=== PATIENT | female | born 1985 | race Hispanic/Latino ===

== ENCOUNTER 2019-04-02 06:49 | Observation (INO) | payer BC ==
[2019-04-01 15:14] LABS: BASOPHILS % (AUTO) 0.3 % (0.0-5.0); EOSINOPHILS % (AUTO) 0.9 % (0.0-8.0); HEMATOCRIT 36.1 % (36-48); LYMPHOCYTES % (AUTO) 29.6 % (21.0-51.0); MEAN CORPUSCULAR HEMOGLOBIN 28.7 pg (27.0-33.0); MEAN CORPUSCULAR HGB CONC 33.9 g/dL (32.0-36.0); MEAN CORPUSCULAR VOLUME 84.8 fL (79-99); MONOCYTES % (AUTO) 6.1 % (3.0-13.0); NEUTROPHILS % (AUTO) 63.1 % (40.0-77.0); PLATELET COUNT (AUTO) 281 K/uL (130-400); RED BLOOD CELL COUNT(AUTO) 4.25 MIL/uL (4.00-5.50); RED CELL DISTRIBUTION WIDTH 14.4 % (11.0-15.5); WHITE BLOOD COUNT (AUTO) 6.9 K/uL (4.8-10.8)
[2019-04-01 15:27] VITALS: BP 118/60
--- NOTE | 2019-04-01 16:10 | NUR ---
Called Doctor [facility] office spoke to Estela and advised her that Physician orders does not indicate DOS and no h & P in chart, pending call back or fax sheet with info.
[~2019-04-02] VITALS: Ht 172.7 cm; Wt 110.7 kg
[2019-04-02] VITALS (21 sets, daily range): BP systolic 90–136; BP diastolic 50–91
[~2019-04-02 06:49] MED LIST: PREN-196 PO; PROGESTERONE VG; ampicillin PO
[2019-04-02] MEDS ORDERED: LACTATED RINGERS 1000ML 1,000 ML IV ONE (07:28)
[2019-04-02] MEDS: CEFAZOLIN SODIUM 1 GM VIAL ONE ×2 (07:40→08:00)
[2019-04-02] MEDS ORDERED: MIDAZOLAM HCL 1 MG/ML 2ML VIAL ONE ×2 (07:50→07:53)
[2019-04-02] MEDS ORDERED: PROPOFOL 10 MG/ML 20ML VIAL IV ONE (07:53)
[2019-04-02] MEDS ORDERED: DEXAMETHASONE SOD PHOSPHATE 10MG/ML 1ML VIAL ONE (07:53)
[2019-04-02] MEDS ORDERED: ONDANSETRON HCL 4 MG/2 ML VIAL ONE (07:53)
[2019-04-02] MEDS ORDERED: LIDOCAINE PF 2% 5ML ABBOJECT ONE (07:53)
[2019-04-02] MEDS ORDERED: FENTANYL CITRATE PF 50 MCG/1 ML 2ML VIAL ONE (07:53)
[2019-04-02] MEDS ORDERED: ROCURONIUM 10MG/1ML SYR 10 MG/ML ML ONE (07:54)
[2019-04-02] MEDS ORDERED: CEFAZOLIN 3GM /D5W 100ML 100 ML IV PRN (08:00)
[2019-04-02] MEDS ORDERED: ACETAMINOPHEN-CODEINE 300/30MG TAB PO PRN (09:00)
[2019-04-02] MEDS ORDERED: SIMETHICONE 80 MG TAB.CHEW PO PRN (09:00)
[2019-04-02] MEDS ORDERED: DOCUSATE SODIUM 100 MG CAP PO PRN (09:00)
[2019-04-02] MEDS ORDERED: PROMETHAZINE HCL 25 MG/ML 1ML AMPULE IM PRN ×2 (09:00)
[2019-04-02] MEDS ORDERED: BISACODYL 10 MG SUPP.RECT RC PRN (09:00)
[2019-04-02] MEDS ORDERED: MEPERIDINE-PF 75 MG/ML SYG IM PRN (09:00)
[2019-04-02] MEDS ORDERED: MEPERIDINE-PF 25 MG/ML SYG ONE ×2 (09:28→10:25)
[2019-04-02] MEDS ORDERED: KETOROLAC TROMETHAMINE 30MG/ML ONE (09:48)
[2019-04-02] MEDS ORDERED: MEPERIDINE-PF 50 MG/ML SYG ONE (10:25)
[2019-04-02] MEDS: DEXTROSE 5 %-0.45 % NACL 1,000 ML IV PRN ×2 (10:39→18:31)
--- NOTE | 2019-04-02 11:47 | NUR ---
NC NC REMOVED PER PT REQUEST, PT O2 SAT 99-100% ON ROOM AIR, NC LEFT IN ROOM
--- NOTE | 2019-04-02 20:45 | NUR ---
pt is ambulating in the hallway, accompanied by spouse, pt is in stable condition Addendum: 04/02/19 at 2150 by TRANG FORTE RN Amended: Links added.
[2019-04-03] MEDS: DEXTROSE 5 %-0.45 % NACL 1,000 ML IV PRN (03:13)
[2019-04-03 03:29] VITALS: BP 97/57
--- NOTE | 2019-04-03 05:15 | NUR ---
guerra catheter removed, tip intact. incisional dressing removed, incision is dry and intact, applied telfa pad. applied abdominal binder. pt tolerated well. informed to call for assistance to the bathroom, pt voiced understanding Addendum: 04/03/19 at 0542 by TRANG FORTE RN Amended: Links added.
[2019-04-03 07:07] LABS: HEMATOCRIT 32.8 % (36-48); MEAN CORPUSCULAR HEMOGLOBIN 28.5 pg (27.0-33.0); MEAN CORPUSCULAR HGB CONC 33.2 g/dL (32.0-36.0); MEAN CORPUSCULAR VOLUME 85.8 fL (79-99); PLATELET COUNT (AUTO) 244 K/uL (130-400); RED BLOOD CELL COUNT(AUTO) 3.83 MIL/uL (4.00-5.50); RED CELL DISTRIBUTION WIDTH 14.9 % (11.0-15.5); WHITE BLOOD COUNT (AUTO) 6.1 K/uL (4.8-10.8)
--- NOTE | 2019-04-03 07:55 | NUR ---
ACTIVITY PT AMBULATING HALLWAY, STEADY GAIT, TOLERATING WELL, NO C/O PAIN, ACCOMPANIED BY SPOUSE
[2019-04-03 08:04] VITALS: BP 122/64
[2019-04-03] MEDS ORDERED: IBUPROFEN 800 MG TAB PO SCH (09:00)
--- NOTE | 2019-04-03 09:39 | NUR ---
ACTIVITY PT AMBULATING HALLWAY, ACCOMPANIED BY SPOUSE, TOLERATING WELL
--- NOTE | 2019-04-03 10:55 | NUR ---
DISCHARGE PT STABLE, NO PAIN, NO COMPLAINTS; PT LEFT UNIT, VIA WHEELCHAIR, STILL , ACCOMPANIED BY CHERY OLIVAS AND SPOUSE CARRYING ALL PERSONAL BELONGINGS, INSTRUCTIONS, AND PRESCRIPTION; PT LEFT FACILITY IN PERSONAL VEHICLE
== END 2019-04-03 10:55 | disposition home or self-care (01) ==
LOC: DAH 06:49 → EDSTATUS 08:00 → DAHIP 09:20 → DAH 09:20 → WSH 10:10
PROVIDERS: ADMIT Specialist; ATTEND Specialist
DX: N83.209 Unspecified ovarian cyst, unspecified side (principal); Z53.31 Laparoscopic surgical procedure converted to open procedure; N83.8 Other noninflammatory disorders of ovary, fallopian tube and broad ligament
CPT/HCPCS: 36415 ×2; 49203; 85025; 85027; 86850; 86900; 86901; 88305; 96372; A4215; A4218; A4344; C1769 ×2; G0378 ×25; J0690; J1100; J1885; J2001; J2175 ×3; J2250 ×2; J2405; J2550; J2704; J3010; J7030; J7120

== ENCOUNTER 2019-04-23 21:08 | Observation (INO) | payer BC ==
[~2019-04-23] VITALS: Ht 172.7 cm; Wt 110.7 kg
[~2019-04-23 21:08] MED LIST changes: -ampicillin PO
[2019-04-23] MEDS ORDERED: SODIUM CHLORIDE 0.9% 1000ML 1,000 ML IV ONE (21:31)
[2019-04-23 22:01] LABS: BASOPHILS % (AUTO) 0.6 % (0.0-5.0); LYMPHOCYTES % (AUTO) 28.8 % (21.0-51.0); MEAN CORPUSCULAR HEMOGLOBIN 27.7 pg (27.0-33.0); NEUTROPHILS % (AUTO) 63.6 % (40.0-77.0); PLATELET COUNT (AUTO) 308 K/uL (130-400); RED BLOOD CELL COUNT(AUTO) 3.81 MIL/uL (4.00-5.50); RED CELL DISTRIBUTION WIDTH 14.3 % (11.0-15.5); WHITE BLOOD COUNT (AUTO) 8.4 K/uL (4.8-10.8)
[2019-04-23 22:08] LABS: CREATININE 1.4 mg/dL (0.5-1.5); POTASSIUM 4.1 mmol/L (3.5-5.1)
[2019-04-23 22:11] LABS: INR 0.95 (0.85-1.15); PARTIAL THROMBOPLASTIN TIME 27.8 SEC (26.3-35.5)
[2019-04-24] VITALS (11 sets, daily range): BP systolic 91–109; BP diastolic 42–64
[2019-04-24] MEDS ORDERED: MISOPROSTOL 200 MCG TABLET PO ONE (02:00)
[2019-04-24] MEDS: SODIUM CHLORIDE 0.9% 1000ML 1,000 ML IV SCH ×2 (04:38→08:48)
--- NOTE | 2019-04-24 08:00 | NUR ---
ROUNDING DR. DUVAL AT BEDSIDE TO ASSESS AND TALK TO PT.
--- NOTE | 2019-04-24 10:25 | NUR ---
RESULTS DR. DUVAL INFORMED OF RESULTS OF HCG TITER AND US.
[2019-04-24] MEDS ORDERED: FENTANYL CITRATE PF 50 MCG/1 ML 2ML VIAL ONE (13:03)
[2019-04-24] MEDS ORDERED: PROPOFOL 10 MG/ML 20ML VIAL IV ONE (13:03)
[2019-04-24] MEDS ORDERED: MIDAZOLAM HCL 1 MG/ML 2ML VIAL ONE (13:03)
[2019-04-24] MEDS ORDERED: ONDANSETRON HCL 4 MG/2 ML VIAL ONE (13:20)
[2019-04-24] MEDS ORDERED: OXYTOCIN 10 USP UNITS/ML ONE (13:28)
--- NOTE | 2019-04-24 14:35 | NUR ---
POST OP RECEIVED PT S/P D& C IN STABLE CONDITION. DENIES PAIN. ASSESSMENT DONE; SEE NURSING ASSESSMENT.
--- NOTE | 2019-04-24 17:30 | NUR ---
PT TOLERATING FLUIDS AND UP VOIDING WITHOUT DIFFICULTY OR DIZZINESS. DENIED PAIN. WILL PROCEED WITH DISCHARGE.
--- NOTE | 2019-04-24 18:10 | NUR ---
DISCHARGE PT LEFT UNIT VIA WHEELCHAIR, ACCOMPANIED BY SPOUSE. DENIED PAIN AND HAD NO COMPLAINTS. TRANSPORTED BY PERSONAL VEHICLE.
== END 2019-04-24 18:10 | disposition home or self-care (01) ==
LOC: EDH 21:08 → EDHIP 04-24 00:07 → WSH 04-24 02:12
PROVIDERS: ADMIT Specialist; ATTEND Specialist
DX: O03.4 Incomplete spontaneous abortion without complication (principal)
CPT/HCPCS: 36415 ×2; 59812; 76801; 80048; 84702; 85014; 85018; 85025; 85610; 85730; 86850; 86900; 86901; 88305; 99284; A4351; G0378 ×15; J2250; J2405; J2590; J2704; J3010; J7030 ×2